=== PATIENT | female | born 1990 | race Asian ===

== ENCOUNTER 2021-10-19 18:37 | Emergency (ER) | payer MEDICAID ==
[2021-10-19] MEDS ORDERED: Acetaminophen/HYDROcodone 325-5 MG Tab PO ONE (18:38)
[2021-10-19] MEDS ORDERED: Ciprofloxacin 500 MG Tab PO ONE (18:38)
[2021-10-19] MEDS ORDERED: Ondansetron 4 MG/2 ML SDV IVPUSH ONE (19:01)
[2021-10-19] MEDS ORDERED: HYDROmorphone 2 MG/ML SDV IVPUSH ONE (19:01)
[2021-10-19] MEDS ORDERED: Sodium Chloride 0.9% 10 ML Syringe FLUSH PRN (19:01)
[2021-10-19] MEDS ORDERED: Sodium Chloride 0.9% 1,000 ML IV SCH (19:15)
[2021-10-19 19:23] LABS: ESTIMATED GFR 101 mL/min (>60)
== END 2021-10-19 21:55 | disposition home or self-care (01) ==
LOC: FB.ED 18:37
DX: O03.9 Complete or unspecified spontaneous abortion without complication (principal); N39.0 Urinary tract infection, site not specified
CPT/HCPCS: 36415; 80053; 81001; 84702; 85025; 86140; 87086; 96361; 96374; 96375; 99284; A9270; J1170; J2405; J7030

== ENCOUNTER 2021-10-21 17:04 | Emergency (ER) | payer MEDICAID ==
[2021-10-21] MEDS: Ondansetron 4 MG Tab.DIS PO STA (17:21)
[2021-10-21] MEDS: Ketorolac 30 MG/ML SDV IM ONE (17:21)
[2021-10-21] MEDS: hydrOXYzine HCl 50 MG/ML SDV IM ONE (18:04)
[2021-10-21] MEDS: SUMAtriptan 6 MG/0.5 ML SDV SUBCUT ONE (18:05)
== END 2021-10-21 18:53 | disposition home or self-care (01) ==
LOC: FB.ED 17:04
DX: G43.909 Migraine, unspecified, not intractable, without status migrainosus (principal); N80.9 Endometriosis, unspecified; Z79.899 Other long term (current) drug therapy
CPT/HCPCS: 96372; 99283; J1885; J3030; J3410; Q0162

== ENCOUNTER 2022-05-26 20:20 | Emergency (ER) | payer MEDICAID ==
[2022-05-26] MEDS ORDERED: Ketorolac 10 MG Tab PO ONE (20:21)
[2022-05-26] MEDS ORDERED: Ketorolac 30 MG/ML SDV IM ONE (21:29)
[2022-05-26 22:03] LABS: ESTIMATED GFR 123 mL/min (>60)
== END 2022-05-26 23:33 | disposition home or self-care (01) ==
LOC: FB.ED 20:20
DX: N94.6 Dysmenorrhea, unspecified (principal); N80.9 Endometriosis, unspecified
CPT/HCPCS: 36415; 80053; 84702; 85025; 96372; 99283; 99284; A9270-GY; J1885

== ENCOUNTER 2022-06-23 10:02 | Emergency (ER) | payer MEDICAID ==
[2022-06-23] MEDS ORDERED: Ondansetron 4 MG Tab.DIS PO ONE (10:32)
[2022-06-23] MEDS ORDERED: SUMAtriptan 6 MG/0.5 ML SDV SUBCUT ONE (10:32)
[2022-06-23] MEDS ORDERED: Acetaminophen 500 MG Tab PO ONE (10:33)
[2022-06-23] MEDS: Ketorolac 30 MG/ML SDV IM STA ×2 (10:51→11:02)
[2022-06-23] MEDS ORDERED: Sodium Chloride 0.9% 1,000 ML IV SCH (11:00)
[2022-06-23] MEDS ORDERED: Ketorolac 30 MG/ML SDV IVPUSH ONE (11:01)
[2022-06-23 11:21] LABS: ESTIMATED GFR 101 mL/min (>60)
[2022-06-23 11:51] LABS: CORONAVIRUS COVID-19 NAA POSITIVE (NEGATIVE)
== END 2022-06-23 12:50 | disposition home or self-care (01) ==
LOC: FB.ED 10:02
DX: U07.1 COVID-19 (principal); G43.909 Migraine, unspecified, not intractable, without status migrainosus; Z79.899 Other long term (current) drug therapy
CPT/HCPCS: 0240U; 80048; 85025; 96361; 96372; 96374; 99283; 99284; A9270; J1885; J3030; J7030; Q0162

== ENCOUNTER 2023-03-11 21:16 | Emergency (ER) | payer MEDICAID ==
[2023-03-11] MEDS ORDERED: Ondansetron 4 MG Tab.DIS PO ONE (21:17)
[2023-03-11] MEDS ORDERED: Sodium Chloride 0.9% 10 ML Syringe FLUSH PRN (22:33)
[2023-03-11] MEDS ORDERED: Naloxone 0.4 MG/ML SDV IVPUSH PRN (22:33)
[2023-03-11] MEDS: HYDROmorphone 2 MG/ML SDV IVPUSH ONE (22:56)
[2023-03-11] MEDS: Sodium Chloride 0.9% 1,000 ML IV ONE (22:56)
[2023-03-11] MEDS: Ondansetron 4 MG/2 ML SDV IVPUSH ONE (22:56)
[2023-03-11 23:07] LABS: BLOOD UREA NITROGEN,BUN 14 mg/dL (7-18); CALCIUM 9.2 mg/dL (8.6-10.2); CARBON DIOXIDE,CO2 30 mmol/L (21-32); CHLORIDE,CL 105 mmol/L (100-110); CREATININE 0.7 mg/dL (0.55-1.02); EST CRCL DRUG DOSING (CG) 82.62 mL/min; ESTIMATED GFR 118 mL/min (>60); GLUCOSE RANDOM 114 mg/dL (80-116); POTASSIUM,K 3.6 mmol/L (3.5-5.3); SODIUM,NA 141 mmol/L (135-145)
[2023-03-11 23:08] LABS: BASOPHILS PERCENT AUTO 0.3 % (0.2-1.5); EOSINOPHILS ABSOLUTE AUTO 0.1 x10-3/uL (0.0-0.8); EOSINOPHILS PERCENT AUTO 1.3 % (0.6-8.1); HEMATOCRIT 41.8 % (34.2-48.2); HEMOGLOBIN 14.3 g/dL (11.4-15.5); LYMPHOCYTES ABSOLUTE AUTO 2.1 x10-3/uL (1.0-4.4); LYMPHOCYTES PERCENT AUTO 31.9 % (18.4-52.1); MEAN CORPUSCULAR HEMOGLOBIN 30.9 pg (23.9-33.9); MEAN CORPUSCULAR HGB CONC 34.2 g/dL (31.9-34.8); MEAN CORPUSCULAR VOLUME 90.1 fL (76.7-100.5); MEAN PLATELET VOLUME 8.6 fL (7.1-12.4); MONOCYTES ABSOLUTE AUTO 0.7 x10-3/uL (0.3-1.0); MONOCYTES PERCENT AUTO 9.8 % (4.4-15.7); NEUTROPHILS ABSOLUTE AUTO 3.8 x10-3/uL (1.5-6.3); NEUTROPHILS PERCENT AUTO 56.7 % (30.8-76.2); PLATELET COUNT,PLT 212 x10(3)uL (151-488); RED BLOOD CELL COUNT 4.64 x10(6)uL (3.60-5.20); RED CELL DISTRIBUTION WIDTH 13.2 % (12.3-16.5); WHITE BLOOD CELL COUNT,WBC 6.7 x10-3/uL (3.0-10.3)
[2023-03-11 23:11] LABS: LIPASE 34 U/L (16-77)
[2023-03-11 23:14] LABS: A/G RATIO 0.9; ALANINE AMINOTRANSFERASE,ALT 18 U/L (12-36); ALBUMIN 3.6 g/dL (3.5-5.2); ALKALINE PHOSPHATASE 53 IU/L (56-112); ASPARTATE AMNIOTRANSFERASE,AST 15 IU/L (5-25); BILIRUBIN TOTAL 0.3 mg/dL (0.1-1.3); C-REACTIVE PROTEIN < 0.50 mg/dL (<0.50); MAGNESIUM 1.9 mg/dL (1.8-2.5); PROTEIN TOTAL,TP 7.7 g/dL (6.0-8.0)
[2023-03-11 23:16] LABS: BILIRUBIN,URINE NEGATIVE (NEGATIVE); GLUCOSE,URINE NORMAL (NORMAL); KETONES,URINE NEGATIVE (NEGATIVE); LEUKOCYTE ESTERASE,URINE NEGATIVE (NEGATIVE); NITRITE,URINE NEGATIVE (NEGATIVE); OCCULT BLOOD,URINE NEGATIVE (NEGATIVE); PROTEIN,URINE NEGATIVE (NEGATIVE); UROBILINOGEN,URINE NORMAL (NEGATIVE)
[2023-03-11 23:17] LABS: APPEARANCE,URINE SLIGHTLY CLOUDY (CLEAR); BACTERIA,URINE FEW (NS); COLOR,URINE YELLOW (YELLOW); MUCUS,URINE FEW (NS); RBC,URINE 0-5 (0-5); SQUAMOUS EPITHELIAL CELLS,UR MODERATE (NS,R,O); WBC,URINE 0-5 (0-5)
== END 2023-03-12 00:06 | disposition home or self-care (01) ==
LOC: FB.ED 21:16
DX: R10.13 Epigastric pain (principal); M25.572 Pain in left ankle and joints of left foot; G89.18 Other acute postprocedural pain; Z86.16 Personal history of COVID-19; Z79.899 Other long term (current) drug therapy
CPT/HCPCS: 36415; 80053; 81001; 81025; 83605; 83690; 83735; 85025; 86140; 96361; 96374; 96375; 99284; J1170; J2405; J7030; Q0162

== ENCOUNTER 2023-03-12 04:48 | Emergency (ER) | payer MEDICAID | END 2023-03-12 06:39 | disposition home or self-care (01) | LOC: FB.ED 04:48 | DX: M79.672 Pain in left foot (principal); G89.18 Other acute postprocedural pain; Z86.16 Personal history of COVID-19; Z79.899 Other long term (current) drug therapy | CPT/HCPCS: 99283 ==